=== PATIENT | female | born 1985 | race African-American/Black ===

== ENCOUNTER 2023-02-16 10:26 | Emergency (ER) | payer MEDICAID ==
[~2023-02-16] VITALS: Ht 162.6 cm; Wt 63.0 kg
[2023-02-16 13:18] LABS: BASOPHILS % 0.3 % (0.0-2.0); EOSINOPHILS % 1.6 % (0.0-5.0); HEMATOCRIT. 38.2 % (36.0-48.0); HEMOGLOBIN. 12.8 g/dL (12.0-16.0); LYMPHOCYTES % 26.5 % (20.0-50.0); MEAN CORPUSCULAR VOLUME 101.5 fL (81.0-99.0); MEAN PLATELET VOLUME 7.2 fl (7.4-10.4); MONOCYTES % 5.3 % (2.0-8.0); NEUTROPHILS % 66.3 % (40.0-76.0); PLATELET 272 x1000/uL (130-400); RED BLOOD CELL COUNT 3.77 mill/uL (4.2-5.4); RED CELL DISTRIBUTION WIDTH 13.6 % (11.6-14.6)
[2023-02-16 13:25] LABS: CHLORIDE 107 mEq/L (98-107)
[2023-02-16 15:58] LABS: CLARITY URINE CLEAR (CLEAR); COLOR URINE YELLOW (YELLOW); KETONES URINE NEGATIVE (NEGATIVE); LEUKOCYTE ESTERASE URINE TRACE (NEGATIVE); NITRITE URINE NEGATIVE (NEGATIVE); OCCULT BLOOD URINE NEGATIVE (NEGATIVE); PH URINE 5.5 (4.5-8.0); PROTEIN URINE NEGATIVE (NEGATIVE); SPECIFIC GRAVITY URINE 1.019 (1.005-1.030); UROBILINOGEN URINE 0.2 E.U./dL (0.2-1.0)
[2023-02-16] MEDS ORDERED: KETOROLAC 60MG/2ML VIAL IM ONE (16:00)
[2023-02-16 16:13] VITALS: BP 138/96
[2023-02-16] MEDS ORDERED: IBUP-2029 MT (16:54)
[2023-02-16] MEDS ORDERED: CEPH500T MT (17:17)
== END 2023-02-16 17:29 | disposition home or self-care (01) ==
LOC: ER 10:26
DX: M79.644 Pain in right finger(s) (principal); N39.0 Urinary tract infection, site not specified; Z98.890 Other specified postprocedural states
CPT/HCPCS: 36415; 73110; 73130; 80053; 80320; 81003; 81025; 83690; 85025; 96372; 99284; J1885; G0480